=== PATIENT | female | born 1955 | race Caucasian/White ===

== ENCOUNTER 2018-07-19 18:20 | Emergency (ER) | payer OTHER ==
[~2018-07-19] VITALS: Ht 167.6 cm; Wt 49.9 kg
[2018-07-19] MEDS ORDERED: RANI150C4 PO (18:45)
[2018-07-19] MEDS ORDERED: LEVO25TA9 PO (18:45)
[2018-07-19] MEDS ORDERED: ROPI0.5T PO (18:45)
[2018-07-19] MEDS ORDERED: VITA200C70 PO (18:45)
[2018-07-19] MEDS ORDERED: CALC500T51 PO (18:45)
[2018-07-19] MEDS ORDERED: ZINC220C8 PO (18:45)
[2018-07-19] MEDS ORDERED: MULT1TAB73 PO (18:45)
[2018-07-19] MEDS ORDERED: ASCO500C18 PO (18:45)
[2018-07-19] MEDS ORDERED: CARB-36 PO (18:45)
[2018-07-19] MEDS ORDERED: DOCU-270 PO (18:45)
[2018-07-19] MEDS ORDERED: DOCU100T PO (18:45)
[2018-07-19] MEDS ORDERED: ALEN70TA3 PO (18:45)
[2018-07-19] MEDS ORDERED: DULO30CA2 PO ×2 (18:45)
[2018-07-19 19:23] LABS: BASOPHILS % (AUTO) 0.5 % (0.0-2.0); EOSINOPHILS # (AUTO) 0.2 K/uL (0.0-0.7); HEMATOCRIT 40.8 % (31.2-41.9); HEMOGLOBIN 13.7 g/dL (10.9-14.3); LYMPHOCYTES # (AUTO) 1.2 K/uL (20.0-40.0); LYMPHOCYTES % (AUTO) 20.8 % (20.5-51.5); MEAN CORPUSCULAR HEMOGLOBIN 32.8 uug (24.7-32.8); MEAN CORPUSCULAR HGB CONC 34 g/dL (32.3-35.6); MEAN CORPUSCULAR VOLUME 97.7 fL (75.5-95.3); MONOCYTES # (AUTO) 0.6 K/uL (2.0-10.0); NEUTROPHILS # (AUTO) 3.8 K/uL (1.8-8.9); NEUTROPHILS % (AUTO) 65.7 % (38.5-71.5); PLATELET COUNT (AUTO) 191 K/uL (179-408); RED BLOOD CELL COUNT(AUTO) 4.18 MIL/uL (3.63-4.92); WHITE BLOOD COUNT (AUTO) 5.8 K/uL (3.8-11.8)
[2018-07-19 19:26] LABS: CREATININE 0.5 mg/dL (0.6-1.3); POTASSIUM 3.6 mmol/L (3.5-5.1)
--- NOTE | 2018-07-19 19:29 | NUR ---
Recieved report from dayshift, assumed care of pt.,
[2018-07-19 19:40] LABS: BILIRUBIN,DIRECT 0.1 mg/dL (0.0-0.2); BILIRUBIN,TOTAL 0.4 mg/dL (0.2-1.0); TOTAL PROTEIN, SERUM 7.1 g/dL (6.4-8.2)
--- NOTE | 2018-07-19 19:48 | NUR ---
Pt. taken off unit for CT
--- NOTE | 2018-07-19 20:12 | NUR ---
[id number]
--- NOTE | 2018-07-19 20:30 | NUR ---
Pt. is disoriented w/ poor balance, weakness and unsteady gait, repeatedly tries to get out of bed, Binding [facility]yer called for sitter, was told to call Security - Security called and is now monitoring pt.,
--- NOTE | 2018-07-19 22:10 | NUR ---
Pt. resting in bed, IV patent and locked, NAD, monitoring from nurse station
--- NOTE | 2018-07-19 23:13 | NUR ---
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 to return to room 106, [id number] here for transport,
--- NOTE | 2018-07-19 23:30 | NUR ---
Pt. taken off unit by [id number], IV removed, all documents given, left on stretcher, NAD,
== END 2018-07-20 00:03 | disposition home or self-care (01) ==
LOC: ER 18:22
DX: I95.9 Hypotension, unspecified (principal); F03.90 Unspecified dementia, unspecified severity, without behavioral disturbance, psychotic disturbance, mood disturbance, and anxiety; F32.9 Major depressive disorder, single episode, unspecified; Z79.899 Other long term (current) drug therapy
CPT/HCPCS: 36415; 70030-TC; 70450; 71045; 83605; 85025; 85730; 87040; 93005; A4663